=== PATIENT | female | born 1970 | race Two or more races ===

== ENCOUNTER 2020-02-07 16:47 | Emergency (ER) | payer SELFPAY ==
--- NOTE | 2020-02-07 17:32 | EDM.PDOC ---
ED HPI GENERAL MEDICAL PROBLEM - General Chief Complaint: Cardiovascular Problem Stated Complaint: BLOOD PRESSURE 185/92 Time Seen by Provider: 02/07/20 17:10 Source of Information: Reports: Patient History Limitations: Reports: No Limitations - History of Present Illness INITIAL COMMENTS - FREE TEXT/NARRATIVE: Patient is a 49-year-old female who presents to the emergency department with complaints of high blood pressure, frequent headaches, and lightheadedness. Patient states the symptoms have been going on for a couple months. She states she was having a headache and dizziness at work today so her boss checked her blood pressure and was found to be 185/92. She notes that over the last few months she has had heavier than normal menstrual periods; however, she is not currently menstruating. States she finished her menstrual period 1 week ago. She does have a history of iron deficiency anemia, however she is not taking an iron supplement at this time. She does not have a history of high blood pressure and has never been on medications for this. She denies any chest pain or shortness of breath, . States she does have a history of hypothyroidism, however she is not on medications and has not had it checked recently. She does not have a primary care provider that she sees in [facility]. She denies any syncopal episodes. Vital signs on triage were stable, however she did have an elevated blood pressure at 153/74. Headache Pain Score (Numeric/FACES): 6 - Related Data Allergies Allergy/AdvReac Type Severity Reaction Status Date / Time No Known Allergies Allergy Verified 02/07/20 17:23 Home Meds: Home Meds Omeprazole Magnesium [Prilosec Otc] 20 mg PO DAILY 02/07/20 [History] Past Medical History HEENT History: Reports: Impaired Vision Other HEENT History: wears reading eyeglasses. Gastrointestinal History: Reports: Other (See Below) Other Gastrointestinal History: c/o chronic loose stools. 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 - Infectious Disease History Infectious Disease History: Reports: Chicken Pox, Measles, Mumps - Past Surgical History HEENT Surgical History: Reports: Adenoidectomy, Tonsillectomy Musculoskeletal Surgical History: Reports: Other (See Below) Other Musculoskeletal Surgeries/Procedures:: hand surgery Social & Family History - Tobacco Use Smoking Status *Q: Never Smoker Second Hand Smoke Exposure: No - Caffeine Use Caffeine Use: Reports: Coffee, Tea - Alcohol Use Days Per Week of Alcohol Use: 4 Number of Drinks Per Day: 2 Total Drinks Per Week: 8 - Recreational Drug Use Recreational Drug Use: No ED ROS GENERAL - Review of Systems Review Of Systems: See Below Constitutional: Reports: No Symptoms. Denies: Fever, Chills, Weakness HEENT: Reports: No Symptoms Respiratory: Reports: No Symptoms. Denies: Shortness of Breath, Cough Cardiovascular: Reports: Lightheadedness. Denies: Chest Pain, Dyspnea on Exertion, Palpitations, Syncope Endocrine: Reports: No Symptoms GI/Abdominal: Reports: No Symptoms. Denies: Abdominal Pain, Diarrhea, Nausea, Vomiting : Reports: Other (Menorrhagia). Denies: Dysuria, Flank Pain, Frequency Musculoskeletal: Reports: No Symptoms Skin: Reports: No Symptoms Neurological: Reports: No Symptoms Psychiatric: Reports: No Symptoms Hematologic/Lymphatic: Reports: Easy Bruising Immunologic: Reports: No Symptoms ED EXAM, GENERAL - Physical Exam Exam: See Below Exam Limited By: No Limitations General Appearance: Alert, WD/WN, No Apparent Distress Respiratory/Chest: No Respiratory Distress, Lungs Clear, Normal Breath Sounds, No Accessory Muscle Use, Chest Non-Tender Cardiovascular: Normal Peripheral Pulses, Regular Rate, Rhythm, No Edema, No Gallop, No JVD, No Murmur, No Rub GI/Abdominal: Normal Bowel Sounds, Soft, Non-Tender, No Organomegaly, No Distention, No Abnormal Bruit, No Mass Neurological: Alert, Oriented, CN II-XII Intact, Normal Cognition, Normal Gait, Normal Reflexes, No Motor/Sensory Deficits Psychiatric: Normal Affect, Normal Mood Skin Exam: Warm, Dry, Intact, Normal Color, No Rash Course - Vital Signs Last Recorded V/S: Last Vital Signs Temp 97.8 F 02/07/20 19:25 Pulse 88 02/07/20 19:25 Resp 18 02/07/20 19:25 BP 148/84 H 02/07/20 19: Pulse Ox 100 02/07/20 19:25 - Orders/Labs/Meds Orders: Active Orders 24 hr Category Date Time Status EKG Documentation Completion [RC] STAT Care 02/07/20 17:31 Active Chest 2V [CR] Stat Exams 02/07/20 17:31 Taken Head wo Cont [CT] Stat Exams 02/07/20 17:27 Taken Labs: Laboratory Tests 02/07/20 02/07/20 02/07/20 Range/Units 17:25 17:25 17:25 WBC 5.75 (3.98-10.04) K/mm3 RBC 3.34 L (3.98-5.22) M/mm3 Hgb 7.3 L* (11.2-15.7) gm/dl Hct 28.6 L (34.1-44.9) % MCV 85.6 (79.4-94.8) fl MCH 21.9 L (25.6-32.2) pg MCHC 25.5 L (32.2-35.5) g/dl RDW Std Deviation 59.5 H (36.4-46.3) fL Plt Count 342 (182-369) K/mm3 MPV 10.0 (9.4-12.3) fl Neut % (Auto) 63.5 (34.0-71.1) % Lymph % (Auto) 22.1 (19.3-51.7) % [place] % (Auto) 8.5 (4.7-12.5) % Eos % (Auto) 4.7 (0.7-5.8) Baso % (Auto) 1.0 (0.1-1.2) % Neut # (Auto) 3.65 (1.56-6.13) K/mm3 Lymph # (Auto) 1.27 (1.18-3.74) K/mm3 [place] # (Auto) 0.49 H (0.24-0.36) K/mm3 Eos # (Auto) 0.27 (0.04-0.36) K/mm3 Baso # (Auto) 0.06 (0.01-0.08) K/mm3 Manual Slide Review Abnormal smear Sodium 138 (136-145) mEq/L Potassium 3.3 L (3.5-5.1) mEq/L Chloride 101 (98-107) mEq/L Carbon Dioxide 28 (21-32) mEq/L Anion Gap 12.3 (5-15) BUN 7 (7-18) mg/dL Creatinine 0.7 (0.55-1.02) mg/dL Est Cr Clr Drug Dosing 78.58 mL/min Estimated GFR (MDRD) > 60 (>60) mL/min BUN/Creatinine Ratio 10.0 L (14-18) Glucose 103 (74-106) mg/dL Calcium 8.5 (8.5-10.1) mg/dL Iron (50-170) ug/dL Ferritin (8-252) ng/ml Total Bilirubin 0.5 (0.2-1.0) mg/dL AST 66 H (15-37) U/L ALT 44 (14-59) U/L Alkaline Phosphatase 134 H (46-116) U/L C-Reactive Protein 0.5 (<1.0) mg/dL Total Protein 7.4 (6.4-8.2) g/dl Albumin 3.1 L (3.4-5.0) g/dl Globulin 4.3 gm/dL Albumin/Globulin Ratio 0.7 L (1-2) TSH 3rd Generation 0.560 (0.358-3.74) uIU/mL //20 Range/Units 17:25 WBC (3.98-10.04) K/mm3 RBC (3.98-5.22) M/mm3 Hgb (11.2-15.7) gm/dl Hct (34.1-44.9) % MCV (79.4-94.8) fl MCH (25.6-32.2) pg MCHC (32.2-35.5) g/dl RDW Std Deviation (36.4-46.3) fL Plt Count (182-369) K/mm3 MPV (9.4-12.3) fl Neut % (Auto) (34.0-71.1) % Lymph % (Auto) (19.3-51.7) % [place] % (Auto) (4.7-12.5) % Eos % (Auto) (0.7-5.8) Baso % (Auto) (0.1-1.2) % Neut # (Auto) (1.56-6.13) K/mm3 Lymph # (Auto) (1.18-3.74) K/mm3 [place] # (Auto) (0.24-0.36) K/mm3 Eos # (Auto) (0.04-0.36) K/mm3 Baso # (Auto) (0.01-0.08) K/mm3 Manual Slide Review Sodium (136-145) mEq/L Potassium (3.5-5.1) mEq/L Chloride (98-107) mEq/L Carbon Dioxide (21-32) mEq/L Anion Gap (5-15) BUN (7-18) mg/dL Creatinine (0.55-1.02) mg/dL Est Cr Clr Drug Dosing mL/min Estimated GFR (MDRD) (>60) mL/min BUN/Creatinine Ratio (14-18) Glucose (74-106) mg/dL Calcium (8.5-10.1) mg/dL Iron 19 L (50-170) ug/dL Ferritin 5 L (8-252) ng/ml Total Bilirubin (0.2-1.0) mg/dL AST (15-37) U/L ALT (14-59) U/L Alkaline Phosphatase (46-116) U/L C-Reactive Protein (<1.0) mg/dL Total Protein (6.4-8.2) g/dl Albumin (3.4-5.0) g/dl Globulin gm/dL Albumin/Globulin Ratio (1-2) TSH 3rd Generation (0.358-3.74) uIU/mL - Re-Assessments/Exams Free Text/Narrative Re-Assessment/Exam: Patient is a 49-year-old female who presents to the emergency department with complaints of frequent headaches, dizziness, and elevated blood pressure. I ordered a CBC, CMP, TSH, EKG, 2 view chest, and CT of the head. 02/07/20 1725 Was notified by DARCY Salazar that patient's hemoglobin was low at 7.3. I have ordered an iron and a ferritin level to be completed. 02/07/20 19:41 Hematology was significant for RBC low at 3.34, hemoglobin low at 7.3, hematocrit low at 28.6, potassium slightly low at 3.3, iron low at 19, ferritin low at 5. Head CT was negative for any acute abnormalities. Chest x-ray was found to be normal. EKG was normal. Patient's hemoglobin is low, however it is above our threshold to transfuse of 7.0. She is not actively bleeding as she finished her menses 1 week ago. While her blood pressures have been slightly elevated, they are not dangerously elevated, therefore I would recommend that she purchase a blood pressure cuff and check her blood pressure daily and keep a log of it. Also then have her start iron supplementation. Discussed the importance of her establishing care in the clinic with a primary care provider to monitor her hemoglobin as well as discussed the possibility of blood pressure medications in the future. We will refer her to Bridgett Marinelli NP. Discussed that if she should have any worsening symptoms or syncopal episodes, she should return to the emergency department. She is in agreement with this plan. Discharge instructions as documented. Departure - Departure Time of Disposition: 19:41 Disposition: Home, Self-Care 01 Condition: Good Clinical Impression: Iron deficiency anemia Qualifiers: Iron deficiency anemia type: unspecified iron deficiency Qualified Code(s): D50.9 - Iron deficiency anemia, unspecified Instructions: Anemia Referrals: Bridgett Marinelli NP [Nurse Practitioner] - Forms: ED Department Discharge Additional Instructions: You were seen in the emergency department today for an extended history of recurrent headaches, dizziness, heavy menstrual periods, and an elevated blood pressure today. He work-up included blood work, chest x-ray, EKG of your heart, and a CT scan of your head. Results of your work-up show that you are anemic. Your hemoglobin was found to be 7.3 which is only slightly above our threshold to transfuse blood. At this time, a blood transfusion is not indicated, however if your hemoglobin should drop further, you may require a transfusion in the future. Your iron levels were found to be quite low in the emergency department. I would recommend that you start an iron supplementation of 325 mg of ferrous sulfate (65 mg of elemental iron) daily. This may be purchased [id number]. Take this with orange juice as the vitamin C helps to better absorb the iron. It is also recommended that you take it with food as it may upset your stomach. With regards to your blood pressure, I would recommend that you purchase a a blood pressure cuff and check your blood pressure daily. Keep a log of these readings to take with you to the clinic. Recommend that you call to schedule a follow-up appointment with Bridgett Marinelli NP for either Thursday of this week or early next week to have your blood work rechecked and ensure that your hemoglobin has not dropped further. She will also be able to evaluate your blood pressures and discuss the possible need for blood pressure medications. If you should develop any new or worsening symptoms of concern, please not hesitate to return to the emergency department. Sepsis Event Note (ED) - Evaluation Sepsis Screening Result: No Definite Risk - Focused Exam Vital Signs: Vital Signs Temp Pulse Resp BP Pulse Ox 02/07/20 19:25 97.8 F 88 18 148/84 H 100 02/07/20 17:00 97.7 F 98 16 153/74 H 100 - My Orders Last 24 Hours: My Active Orders 02/07/20 17:27 Head wo Cont [CT] Stat 02/07/20 17:31 EKG Documentation Completion [RC] STAT Chest 2V [CR] Stat - Assessment/Plan Last 24 Hours: My Active Orders 02/07/20 17:27 Head wo Cont [CT] Stat 02/07/20 17:31 EKG Documentation Completion [RC] STAT Chest 2V [CR] Stat
--- NOTE | 2020-02-07 20:38 | CT ---
Head CT Technique: Multiple axial sections through the brain were obtained. Intravenous contrast was not utilized. Comparison: No prior intracranial imaging is available. Findings: Ventricles along with basal cisterns and sulci over the convexities appear within normal limits for the patient's age. No abnormal parenchymal densities are seen. No evidence of intracranial hemorrhage. No midline shift or mass-effect is seen. Bone window settings were reviewed. Visualized mastoid sinuses are clear. Mild mucosal thickening is seen within the sphenoid and ethmoid as well as frontal sinuses. Minimal mucosal thickening is partially visualized within the upper maxillary sinuses. Impression: 1. Mild pansinusitis most likely chronic. 2. No acute intracranial abnormality is appreciated. Diagnostic code #3 This report was dictated in MDT I agree with preliminary report from Julio, finalized on 02/07/20, 7:07 PM Central Daylight Time
--- NOTE | 2020-02-07 20:38 | CR ---
Chest: 2 views of the chest were obtained. Comparison: No previous chest imaging. Heart size at the upper limits of normal. Upper mediastinum is normal. Lungs show no acute parenchymal change. Bony structures are unremarkable. Impression: 1. Heart size at the upper limits of normal. 2. Nothing acute is appreciated on two-view chest x-ray. Diagnostic code #2 This report was dictated in MDT
== END 2020-02-07 19:53 | disposition home or self-care (01) ==
LOC: JD.ED 16:47
DX: D50.9 Iron deficiency anemia, unspecified (principal); N92.0 Excessive and frequent menstruation with regular cycle; Z90.89 Acquired absence of other organs
CPT/HCPCS: 36415; 70450; 70450-26; 71046; 71046-26; 80053; 82728; 83540; 84443; 85025; 86140; 93005; 93010; 99283; 99284-25